=== PATIENT | female | born 1980 | race African-American/Black ===

== ENCOUNTER 2018-09-18 20:08 | Emergency (ER) | payer OTHER, SELFPAY ==
[2018-09-18 20:36] LABS: #Basophils 0.1 thou/uL (0.0-0.2); #Eosinphils 0.6 thou/uL (0.0-0.7); #Lymphocytes 3.3 thou/uL (1.20-3.40); #Monocytes 0.3 thou/uL (0.11-0.59); #Neutrophils 4.4 thou/uL (1.40-6.50); %Basophils 1.4 % (0.0-1.0); %Eosinophils 6.5 % (0.0-10.0); %Lymphocytes 37.6 % (21.0-51.0); %Neutrophils 50.5 % (42.0-75.0); Mean Corpuscular HGB CONC 32.3 g/dL (32.0-36.0); Mean Corpuscular Hemoglobin 29.3 pg (27.0-31.0); Mean Corpuscular Volume 90.7 fL (78.0-98.0); Mean Platelet Volume 7.1 fL (7.4-10.4); Platelet Count 244 thou/uL (130-400); RBC Distribution Width 12.3 % (11.5-14.5); Red Blood Cell (RBC) Count 4.08 mill/uL (4.20-5.40); White Blood Cell (WBC) Count 8.7 thou/uL (4.8-10.8)
[2018-09-18] MEDS ORDERED: predniSONE 20 MG TAB ONE (20:41)
[2018-09-18 20:47] LABS: BHCG - Serum Negative (NEGATIVE); Pregs Control Background? CLEAR/WHITE (CLR/WHITE); Pregs Control Bar Appear? YES (CONTROL BAR)
--- NOTE | 2018-09-18 20:57 | RAD ---
UPRIGHT CHEST ONE VIEW: 09/18/18 HISTORY: 38-year-old female with history of chest pain for one hour wit nausea and vomiting. History of conge stive heart failure. Monitor leads overlie the chest. Heart size is within normal limits. The lungs are clear. IMPRESSION: No acute intrathoracic disease. Stable from prior study, 01/02/17. POS: FRANCIE
[2018-09-18 20:58] LABS: ALT (SGPT) 12 U/L (8-55); AST (SGOT) 13 U/L (5-34); Alkaline Phosphatase 62 U/L (40-150); Anion Gap 11 mmol/L (10-20); BUN (Urea Nitrogen) 9 mg/dL (7.0-18.7); Bilirubin, Total 0.6 mg/dL (0.2-1.2); CK (CPK) 284 U/L (29-168); Calc. Creatinine Clearance 0 mL/min (70-130); Calcium 8.9 mg/dL (7.8-10.44); Carbon Dioxide 25 mmol/L (22-29); Chloride 108 mmol/L (98-107); Estimated GFR-MDRD Greater than 90; Glucose 135 mg/dL (70-105); Lipase 24 U/L (8-78); Potassium 3.7 mmol/L (3.5-5.1); Sodium 140 mmol/L (136-145)
--- NOTE | 2018-09-20 13:17 | EKG ---
Test Reason : Blood Pressure : / mmHG Vent. Rate : 087 BPM Atrial Rate : 087 BPM P-R Int : 142 ms QRS Dur : 086 ms QT Int : 400 ms P-R-T Axes : 058 046 018 degrees QTc Int : 481 ms Normal sinus rhythm Possible Left atrial enlargement Possible Anterior infarct , age undetermined Abnormal ECG Confirmed by ALEIDA BRUNO, ROHIT ([id number]), market editor SHRUTI JULIEN ([id number]) on 09/20/2018 1:17:18 PM Referred By: Confirmed By:ROHIT SHIN MD
== END 2018-09-18 22:02 | disposition home or self-care (01) ==
LOC: ERS 20:08
DX: J45.901 Unspecified asthma with (acute) exacerbation (principal); R07.2 Precordial pain; I11.0 Hypertensive heart disease with heart failure; I50.9 Heart failure, unspecified; F17.210 Nicotine dependence, cigarettes, uncomplicated; F41.9 Anxiety disorder, unspecified; F32.9 Major depressive disorder, single episode, unspecified; Z79.899 Other long term (current) drug therapy
CPT/HCPCS: 71045; 80053; 82550; 83690; 83880; 84484; 84703; 85025; 93005; 94760; J7506; J7620

== ENCOUNTER 2019-10-14 13:21 | Observation (INO) | payer SELFPAY ==
--- NOTE | 2019-10-14 14:43 | RAD ---
Exam: Chest one view HISTORY:Chest pain Comparison: 09/18/2018 FINDINGS: Cardiac silhouette: Normal Aorta: Unremarkable Pulmonary vessels: Normal Costophrenic angles: Clear LUNGS: No masses or consolidation. Pneumothorax: None Osseous abnormalities: None IMPRESSION: No acute cardiopulmonary process.
[2019-10-14 14:46] LABS: #Basophils 0.1 thou/uL (0.0-0.2); #Eosinphils 0.8 thou/uL (0.0-0.7); #Lymphocytes 2.5 thou/uL (1.20-3.40); #Monocytes 0.5 thou/uL (0.11-0.59); #Neutrophils 5.4 thou/uL (1.40-6.50); %Basophils 0.6 % (0.0-1.0); %Eosinophils 8.3 % (0.0-10.0); %Lymphocytes 26.9 % (21.0-51.0); %Monocytes 5.7 % (0.0-10.0); %Neutrophils 58.5 % (42.0-75.0); Mean Corpuscular HGB CONC 32.4 g/dL (32.0-36.0); Mean Corpuscular Hemoglobin 29.7 pg (27.0-31.0); Mean Corpuscular Volume 91.7 fL (78.0-98.0); Mean Platelet Volume 7.2 fL (7.4-10.4); Platelet Count 218 thou/uL (130-400); RBC Distribution Width 12.5 % (11.5-14.5); Red Blood Cell (RBC) Count 4.38 mill/uL (4.20-5.40); White Blood Cell (WBC) Count 9.2 thou/uL (4.8-10.8)
[2019-10-14 15:04] LABS: ALT (SGPT) 10 U/L (8-55); AST (SGOT) 11 U/L (5-34); Albumin 4.2 g/dL (3.5-5.0); Alkaline Phosphatase 73 U/L (40-110); Anion Gap 10 mmol/L (10-20); BUN (Urea Nitrogen) 8 mg/dL (7.0-18.7); Bilirubin, Total 0.5 mg/dL (0.2-1.2); Calc. Creatinine Clearance 0 mL/min (70-130); Calcium 9.2 mg/dL (7.8-10.44); Carbon Dioxide 29 mmol/L (22-29); Chloride 106 mmol/L (98-107); Estimated GFR-MDRD Greater than 90; Globulin 3.5 g/dL (2.4-3.5); Glucose 91 mg/dL (70-105); Lipase 28 U/L (8-78); Potassium 4.1 mmol/L (3.5-5.1); Protein, Total 7.7 g/dL (6.0-8.3); Sodium 141 mmol/L (136-145)
--- NOTE | 2019-10-14 16:44 | PDOC.FPRHP ---
- History of Present Illness Chief Complaint: chest pain History of Present Illness: greer is a 39 yo female who presents for chest pain she reports chest pain at night for the past two days resolved with antacids. last night she started having pain in her back that has not resolved with antacids. she denies any diaphoresis, sob, orthopnea, syncope, n/v/d. she has a pmhx significant for non-ischemic cardiomyopathy in 2014 with EF of 30%. since that time she has not followed up with cardiology. recently she has stopped taking her medications as well. ED Course: albuterol, asa cxr, cbc, cmp, trop - Allergies/Adverse Reactions Allergies Allergy/AdvReac Type Severity Reaction Status Date / Time Penicillins Allergy Verified 10/14/19 20:10 - Home Medications Medication Instructions Recorded Confirmed Type Albuterol Sulfate [Albuterol 0.63 mg NEB Q4HR PRN 09/09/15 10/14/19 History Sulfate Neb] Albuterol Sulfate [Ventolin HFA] 2 puff INH Q4HR PRN 09/09/15 10/14/19 History - History PMHx:non-ischemic cardiomyopathy, htn, hld PSHx: none FHx: none Social: 10/10 ppd, hx of cocaine abuse - Review of Systems General: denies: fever/chills, fatigue Eyes: denies: vision changes ENT: denies: nasal congestion, rhinorrhea Respiratory: reports: cough. denies: congestion, shortness of breath, exercise intolerance Cardiovascular: reports: chest pain. denies: palpitation, edema, paroxysmal nocturnal dyspnea, orthopnea Gastrointestinal: denies: nausea, vomiting, diarrhea, abdominal pain Genitourinary: denies: dysuria Skin: denies: rashes Musculoskeletal: reports: pain, tenderness Neurological: denies: numbness, syncope - Vital signs BP: 141/76, Pulse: 104, Resp: 20, Temp: 98.8 (Oral), Pain: 7, O2 sat: 100 on ( Room Air), - Physical Exam Constitutional: NAD, awake, alert and oriented HEENT: normocephalic and atraumatic, grossly normal vision, grossly normal hearing, MMM Neck: FROM, trachea midline Chest: other (ttp) Heart: RRR, normal S1/S2, no murmurs/rubs/gallops Lungs: CTAB, no respiratory distress, good air movement, no wheezing, no retractions Abdomen: soft, non-tender, no masses/distention Musculoskeletal: normal structure, normal tone, ROM grossly normal Neurological: no focal deficit Skin: no rash/lesions FMR H&P: Results - Labs Result Diagrams: 10/14/19 14:25 10/14/19 14:25 Lab results: WBC 9.2 thou/uL (4.8-10.8) 10/14/19 14:25 Hgb 13.0 g/dL (12.0-16.0) 10/14/19 14:25 Hct 40.2 % (36.0-47.0) 10/14/19 14:25 MCV 91.7 fL (78.0-98.0) 10/14/19 14:25 Plt Count 218 thou/uL (130-400) 10/14/19 14:25 Neutrophils % 58.5 % (42.0-75.0) 10/14/19 14:25 Sodium 141 mmol/L (136-145) 10/14/19 14:25 Potassium 4.1 mmol/L (3.5-5.1) 10/14/19 14:25 Chloride 106 mmol/L (98-107) 10/14/19 14:25 Carbon Dioxide 29 mmol/L (22-29) 10/14/19 14:25 BUN 8 mg/dL (7.0-18.7) 10/14/19 14:25 Creatinine 0.83 mg/dL (0.6-1.1) 10/14/19 14:25 Glucose 91 mg/dL (70-105) 10/14/19 14:25 Calcium 9.2 mg/dL (7.8-10.44) 10/14/19 14:25 Total Bilirubin 0.5 mg/dL (0.2-1.2) 10/14/19 14:25 AST 11 U/L (5-34) 10/14/19 14:25 ALT 10 U/L (8-55) 10/14/19 14:25 Alkaline Phosphatase 73 U/L (40-110) 10/14/19 14:25 B-Natriuretic Peptide 14.1 pg/mL (0-100) 10/14/19 14:25 Serum Total Protein 7.7 g/dL (6.0-8.3) 10/14/19 14:25 Albumin 4.2 g/dL (3.5-5.0) 10/14/19 14:25 Lipase 28 U/L (8-78) 10/14/19 14:25 FMR H&P: A/P - Problem List (1) Tobacco abuse Current Visit: No Status: Acute Code(s): Z72.0 - TOBACCO USE (2) Cardiomyopathy Current Visit: No Status: Chronic Code(s): I42.9 - CARDIOMYOPATHY, UNSPECIFIED (3) HTN (hypertension) Current Visit: No Status: Chronic Code(s): I10 - ESSENTIAL (PRIMARY) HYPERTENSION Qualifiers: Hypertension type: essential hypertension Qualified Code(s): I10 - Essential (primary) hypertension - Plan chest pain - ekg without st changes, regular rhythm and rate, trop negx1 - ekg for chest pain, nitro - trend troponin non-ischemic cardiomyopathy - bnp 14 - echo htn - elevated in ED - hydralazine prn - start lisinopril hld - obtain flp - start statin pending results ppx: lovenox code: dispo: tele obs for chest pain, likely dc tomorrow with negative trops FMR H&P: Upper Level - Plan Date/Time: 10/14/19 1640 I, [], have evaluated this patient and agree with findings/plan as outlined by graduate internship resident. Pertinent changes/additions are listed here. Addendum - Attending - Attending Attestation Date/Time: 10/14/19 2571 I personally evaluated the patient and discussed the management with Dr. Funes I agree with the History, Examination, Assessment and Plan documented above with any addition or exceptions noted below- 39 yo female with h/o asthma and non-ischemic cardiomyopathy who presented for chest pain. She reports chest pain at night for the past two days resolved with antacids. Last night she started having pain in her back that has not resolved with antacids. Pain worse with deep breath or cough. Denies any diaphoresis, sob, orthopnea, syncope, n/v/ d. With regards to her her cardiomyopathy, she has not followed up with cardiology and has not taken medications in the last year. PMH/PSH/Meds/SH reviewed and agree with resident's documentation. Afebrile VSS. Exam repeated by me and agree with resident's findings. Labs: trop I <0.010 x2. EKG- NSR no ST changes. A/P: 1) Atypical chest pain- continue serial cardiac enzymes; will plan to check echo due to her h/o non-ischemic cardiomyoapthy and no recent follow-up/evaluation. -
[2019-10-14] MEDS ORDERED: Aspirin Chewable 81 MG TAB ONE (16:52)
[2019-10-14 18:51] LABS: Troponin I Less than 0.010 ng/mL (< 0.028)
[2019-10-14] MEDS ORDERED: Ondansetron ODT 4 MG TAB PO PRN (19:12)
[2019-10-14] MEDS ORDERED: Nitroglycerin 0.4 MG TAB (25 Tab Bottle) PO PRN (19:12)
[2019-10-14] MEDS ORDERED: Acetaminophen 325 MG TAB PO PRN (19:12)
[2019-10-14 19:15] VITALS: BMI 43.2
[2019-10-14 21:04] LABS: Troponin I Less than 0.010 ng/mL (< 0.028)
--- NOTE | 2019-10-15 05:24 | PDOC.FM ---
- Subjective Subjective: Patient doing well this morning, denies chest pain or pressure overnight. Reports shoulder and back pain. Discussed that we are getting echo today and that will help guide our decision making/plan. Patient agreeable with plan of care. - Objective Vital Signs & Weight: Vital Signs (12 hours) Temp Pulse Resp BP Pulse Ox 10/15/19 04:50 97.8 F 85 16 127/70 99 10/14/19 23:39 98.1 F 81 18 158/79 H 98 10/14/19 19:00 98.6 F 80 20 151/76 H 99 Weight Weight 109.225 kg Result Diagrams: 10/14/19 14:25 10/14/19 14:25 EKG Reviewed by me: Yes (sinus 70s-80s) Phys Exam - Physical Examination Constitutional: NAD HEENT: moist MMs, sclera anicteric Neck: supple, full ROM Respiratory: no wheezing, clear to auscultation bilateral Cardiovascular: RRR, no significant murmur Gastrointestinal: soft, non-tender Musculoskeletal: no edema, pulses present Neurological: non-focal, moves all 4 limbs Psychiatric: normal affect, A&O x 3 Skin: no rash, normal turgor Dx/Plan (1) Tobacco abuse Code(s): Z72.0 - TOBACCO USE Status: Chronic (2) Cardiomyopathy Code(s): I42.9 - CARDIOMYOPATHY, UNSPECIFIED Status: Chronic (3) HTN (hypertension) Code(s): I10 - ESSENTIAL (PRIMARY) HYPERTENSION Status: Chronic Qualifiers: Hypertension type: essential hypertension Qualified Code(s): I10 - Essential (primary) hypertension (4) Chest pain Code(s): R07.9 - CHEST PAIN, UNSPECIFIED Status: Acute - Plan Plan: #Atypical chest pain - ekg: no st changes, regular rhythm and rate - sinus 70s-80s overnight, no arrhythmias - trop negx3 - ekg for chest pain, nitro - TSH: 0.222, free t3 and t4 wnl - A1C: 5.6 - FLP: triglycerides 89, total chol 113, HDL 31 #non-ischemic cardiomyopathy - bnp 14 - echo today to assess acute vs chronic cardiomyopathy - cath 09/20 demonstrated EF 40-45%, diastolic dysfunction - patient has a hx of drug abuse - patient states that 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
[2019-10-15 05:40] LABS: Cardiac Risk 3.6 (Less than 4.5); Cholesterol 113 mg/dl (< 200 Desired); HDL Cholesterol 31 mg/dL (>60 Neg Risk)
[2019-10-15 06:16] LABS: Hemoglobin A1c 5.6 % (4.0-6.0)
[2019-10-15 07:14] LABS: Triglycerides 89 mg/dL (Less than 150)
[2019-10-15 07:29] LABS: Free T4 (Free Thyroxine) 0.92 ng/dL (0.70-1.48)
[2019-10-15 08:36] VITALS: BP 154/66; TEMP 98.7
[2019-10-15] MEDS ORDERED: FLU VACC QS2019-20(6MOS UP)/PF 60 MCG/0.5 ML SYRINGE IM ONE (09:00)
[2019-10-15] MEDS ORDERED: Lisinopril 2.5 MG TAB PO SCH (09:00)
[2019-10-15] MEDS ORDERED: Enoxaparin Sodium 40 MG/0.4 ML SYRINGE SC SCH (09:00)
--- NOTE | 2019-10-15 13:39 | PRG ---
DATE OF SERVICE: 10/15/2019 ADDENDUM: This as an addendum to the note of Dr. Nimco Booker. I have examined the patient and discussed the case with Dr. Booker. I agree with her assessment and plan. Ms. Mcbride is a very pleasant 39-year-old black female with a history of nonischemic cardiomyopathy with EF of 30%. She has not seen a oncology patient navigator since about 2014 and had stopped taking her cardiac medications. She came in with some atypical chest and back pain, that was however relieved with antacids. In the event while in the hospital, she had no further episodes of chest discomfort. Her EKG showed no ischemic changes. Her troponins trended at less than 0.01 x2. She will be cautiously started back on an KARUNA inhibitor to be followed with a beta-christopher and has been instructed to please follow up with her PCP at [facility] as soon as possible to continue to add and adjust her heart failure with reduced ejection fraction medications. Her BMP showed a sodium of 141, potassium 4.1, chloride 106, bicarb 29, BUN 8, and creatinine 0.83. Liver enzymes were normal. Lipids; triglycerides were 89, cholesterol was 113, HDL was 31. As stated above, she had no chest discomfort whatsoever and will be discharged for followup with her PCP with the admonition that she please take her cardiac medications and follow up to have these adjusted. Job ID: [id number]
--- NOTE | 2019-10-16 10:37 | DIS ---
DATE OF ADMISSION: 10/14/2019 DATE OF DISCHARGE: 10/15/2019 ADMITTING RESIDENT: Edwar Funes DO ADMITTING ATTENDING: Serjio Arreola MD DISCHARGE RESIDENT: Nimco Booker MD DISCHARGE ATTENDING: Ky Diane MD CONSULTS: None. PROCEDURES: None. IMAGIN. Chest x-ray: No acute cardiopulmonary process. 2. Echo: EF 30-35%. Left ventricular size is moderately increased. E/A flow reversal noted suggestive of diastolic dysfunction. Normal right ventricular size and function. Left atrium is normal size. Normal right atrium size. Structurally normal mitral valve. Trace mitral regurgitation is present. Structurally normal aortic valve. Trace tricuspid regurgitation. PRIMARY DIAGNOSIS: Atypical chest pain. SECONDARY DIAGNOSES: 1. Nonischemic cardiomyopathy. 2. Hypertension. 3. Hyperlipidemia. DISCHARGE MEDICATIONS: 10 mg lisinopril p.o. daily. DISCONTINUED MEDICATIONS: 1. Tylenol p.r.n. 2. Lovenox. 3. 2.5 mg lisinopril. 4. nitrostat prn. 5. Zofran p.r.n. HISTORY OF PRESENT ILLNESS/HOSPITAL COURSE: The patient is a 39-year-old female with past medical history of hypertension, hyperlipidemia, and nonischemic cardiomyopathy likely from cocaine abuse several years ago when she had a cath September 2015 that showed an EF of 40% to 45%. The patient came into the ED because she had chest pain at night for 2 days prior to admission that she reported had not resolved with antacids. She also had pain in her back. She denied any diaphoresis, shortness of breath, orthopnea, syncope, nausea, vomiting, or diarrhea. She does not have a primary care provider and has not been taking any other medications for several years. She was found to have a negative troponin x3, and EKG showed no ST changes, but a regular rhythm and rate, and a BNP of 14. An echocardiogram was ordered, see above. She was started on lisinopril here in the hospital and was discharged with a script and recommended to follow up with primary care physician to monitor her electrolytes in 1 week and to consider adding a beta-christopher at that time for a known history of cardiomyopathy and reduced ejection fraction and heart failure. The patient was evaluated on the day of discharge and denied any chest pain overnight, and the plan of care was discussed with her to follow up with her primary care provider as outpatient. She was agreeable with the plan of care. DISPOSITION: Stable. DISCHARGE INSTRUCTIONS: 1. Location: To home. 2. Diet: Heart healthy. 3. Activity: As tolerated. 4. Follow up with PCP within 1 week for electrolyte monitoring and consideration of addition of a beta christopher for heart failure. Job ID: [id number] [id number]
== END 2019-10-15 12:07 | disposition home or self-care (01) ==
LOC: ERS 13:21 → 2SW 16:54
PROVIDERS: ADMIT Family Medicine; ATTEND Family Medicine
DX: R07.89 Other chest pain (principal); I42.8 Other cardiomyopathies; I11.0 Hypertensive heart disease with heart failure; I50.9 Heart failure, unspecified; E78.5 Hyperlipidemia, unspecified; F17.210 Nicotine dependence, cigarettes, uncomplicated; F14.11 Cocaine abuse, in remission; J45.909 Unspecified asthma, uncomplicated; Z91.14 Patient's other noncompliance with medication regimen; Z79.899 Other long term (current) drug therapy; Z88.0 Allergy status to penicillin
CPT/HCPCS: 36415; 36416; 71045; 80053; 80061; 83036; 83690; 83880; 84439; 84443; 84481; 84484; 85025; 90471; 90686; 90732; 93005; 93306; 94760; G0008; G0009; G0378

== ENCOUNTER 2020-12-25 07:52 | Emergency (ER) | payer OTHER, SELFPAY ==
[2020-12-25] MEDS ORDERED: methylPREDNISolone Sod Succ/PF 125 MG/2 ML VIAL ONE (08:12)
[2020-12-25 17:01] LABS: SARS-CoV-2 PCR by NAA Not Detected (NotDetected)
== END 2020-12-25 09:43 | disposition home or self-care (01) ==
LOC: ERS 07:52
DX: J45.901 Unspecified asthma with (acute) exacerbation (principal); I11.0 Hypertensive heart disease with heart failure; I50.9 Heart failure, unspecified; Z20.822 Contact with and (suspected) exposure to COVID-19; Z79.899 Other long term (current) drug therapy
CPT/HCPCS: 71045; 87635; 87804; 94640; 96374; J2930; J7620; U0003; U0005

== ENCOUNTER 2021-07-12 17:05 | Emergency (ER) | payer OTHER ==
[2021-07-12] MEDS ORDERED: predniSONE 20 MG TAB ONE (18:20)
[2021-07-12 18:32] LABS: ALT (SGPT) 22 U/L (8-55); AST (SGOT) 20 U/L (5-34); Alkaline Phosphatase 61 U/L (40-110); Anion Gap 11 mmol/L (10-20); BUN (Urea Nitrogen) 10 mg/dL (7.0-18.7); Bilirubin, Total 0.3 mg/dL (0.2-1.2); Calc. Creatinine Clearance 0 mL/min (70-130); Calcium 9.1 mg/dL (7.8-10.44); Carbon Dioxide 24 mmol/L (22-29); Chloride 108 mmol/L (98-107); Globulin 3.5 g/dL (2.4-3.5); Glucose 96 mg/dL (70-105); Potassium 4.6 mmol/L (3.5-5.1); Protein, Total 7.5 g/dL (6.0-8.3); Sodium 138 mmol/L (136-145)
[2021-07-12] MEDS ORDERED: Albuterol 200 PUFF (6.7GM INHALER) ONE (18:40)
[2021-07-12 18:48] LABS: Hemoglobin 13.7 g/dL (12.0-16.0); Mean Corpuscular HGB CONC 32.6 g/dL (32.0-36.0); Mean Corpuscular Hemoglobin 29.9 pg (27.0-31.0); Mean Corpuscular Volume 91.7 fL (78.0-98.0); RBC Distribution Width 12.6 % (11.5-14.5); Red Blood Cell (RBC) Count 4.58 mill/uL (4.20-5.40); White Blood Cell (WBC) Count 8.9 thou/uL (4.8-10.8)
[2021-07-12 19:01] LABS: Eosinophils 12 % (0-10); Lymphocytes 28 % (21-51); MDiff Complete? YES; Monocytes 9 % (0-10); Neutrophil 51 % (42-75); Platelet Clumps MODERATE; Platelet Morphology Comment PLT clumps seen-ADEQ; RBC Morphology Normal
== END 2021-07-12 19:21 | disposition home or self-care (01) ==
LOC: ERS 17:05
DX: J45.901 Unspecified asthma with (acute) exacerbation (principal); I11.0 Hypertensive heart disease with heart failure; I50.9 Heart failure, unspecified; Z79.899 Other long term (current) drug therapy
CPT/HCPCS: 71045; 80053; 84484; 85025; 93005; J7512

== ENCOUNTER 2021-10-05 06:18 | Emergency (ER) | payer OTHER ==
[2021-10-05] MEDS ORDERED: Albuterol 200 PUFF (6.7GM INHALER) ONE (07:34)
[2021-10-05 07:45] LABS: #Eosinphils 0.7 thou/uL (0.0-0.7); #Lymphocytes 2.8 thou/uL (1.20-3.40); #Monocytes 0.5 thou/uL (0.11-0.59); %Basophils 0.7 % (0.0-1.0); %Eosinophils 9.7 % (0.0-10.0); %Lymphocytes 39.9 % (21.0-51.0); %Monocytes 6.9 % (0.0-10.0); %Neutrophils 42.8 % (42.0-75.0); Hemoglobin 13.9 g/dL (12.0-16.0); Mean Corpuscular HGB CONC 32.2 g/dL (32.0-36.0); Mean Corpuscular Hemoglobin 29.8 pg (27.0-31.0); Mean Corpuscular Volume 92.6 fL (78.0-98.0); Mean Platelet Volume 10.4 fL (7.4-10.4); Platelet Count 254 thou/uL (130-400); RBC Distribution Width 12.2 % (11.5-14.5); Red Blood Cell (RBC) Count 4.65 mill/uL (4.20-5.40)
[2021-10-05 08:09] LABS: ALT (SGPT) 15 U/L (8-55); AST (SGOT) 12 U/L (5-34); Albumin 3.8 g/dL (3.5-5.0); Alkaline Phosphatase 52 U/L (40-110); Anion Gap 10 mmol/L (10-20); BUN (Urea Nitrogen) 13 mg/dL (7.0-18.7); Bilirubin, Total 0.4 mg/dL (0.2-1.2); Calc. Creatinine Clearance 0 mL/min (70-130); Calcium 9.3 mg/dL (7.8-10.44); Carbon Dioxide 29 mmol/L (22-29); Chloride 107 mmol/L (98-107); Globulin 3.1 g/dL (2.4-3.5); Glucose 93 mg/dL (70-105); Potassium 4.6 mmol/L (3.5-5.1); Protein, Total 6.9 g/dL (6.0-8.3); Sodium 141 mmol/L (136-145)
[2021-10-05] MEDS ORDERED: predniSONE 20 MG TAB ONE ×2 (09:10→09:11)
[2021-10-05 14:38] LABS: SARS-CoV-2 PCR by NAA Not Detected (NotDetected)
== END 2021-10-05 09:14 | disposition home or self-care (01) ==
LOC: ERS 06:18
DX: J45.901 Unspecified asthma with (acute) exacerbation (principal); Z20.822 Contact with and (suspected) exposure to COVID-19; I11.0 Hypertensive heart disease with heart failure; I50.9 Heart failure, unspecified
CPT/HCPCS: 36415; 71045; 80053; 83880; 84484; 85025; 93005; 94664; J7512; U0003; U0005

== ENCOUNTER 2021-10-14 22:59 | Emergency (ER) | payer OTHER ==
[2021-10-15] MEDS ORDERED: Ipratropium Bromide 2.5 ml Neb ONE (00:34)
[2021-10-15] MEDS ORDERED: Albuterol 200 PUFF (6.7GM INHALER) ONE (00:39)
== END 2021-10-15 00:14 | disposition home or self-care (01) ==
LOC: ERS 22:59
DX: J45.909 Unspecified asthma, uncomplicated (principal); I11.0 Hypertensive heart disease with heart failure; I50.9 Heart failure, unspecified
CPT/HCPCS: 71045; 93005; J7620

== ENCOUNTER 2021-11-28 06:20 | Emergency (ER) | payer OTHER ==
[2021-11-28 07:51] LABS: ALT (SGPT) 17 U/L (8-55); AST (SGOT) 14 U/L (5-34); Albumin 4.1 g/dL (3.5-5.0); Alkaline Phosphatase 48 U/L (40-110); Anion Gap 11 mmol/L (10-20); BUN (Urea Nitrogen) 7 mg/dL (7.0-18.7); Bilirubin, Total 0.8 mg/dL (0.2-1.2); Calc. Creatinine Clearance 0 mL/min (70-130); Carbon Dioxide 23 mmol/L (22-29); Chloride 110 mmol/L (98-107); Globulin 2.6 g/dL (2.4-3.5); Glucose 118 mg/dL (70-105); Magnesium 1.8 mg/dL (1.6-2.6); Protein, Total 6.7 g/dL (6.0-8.3); Sodium 140 mmol/L (136-145)
[2021-11-28 07:59] LABS: Band 1 % (5-11); Eosinophils 4 % (0-10); Hemoglobin 13.4 g/dL (12.0-16.0); Large Platelets SLIGHT; Lymphocytes 48 % (21-51); MDiff Complete? YES; Mean Corpuscular HGB CONC 31.8 g/dL (32.0-36.0); Mean Corpuscular Hemoglobin 29.2 pg (27.0-31.0); Mean Corpuscular Volume 91.7 fL (78.0-98.0); Mean Platelet Volume 11.8 fL (7.4-10.4); Monocytes 6 % (0-10); Neutrophil 41 % (42-75); Platelet Clumps MARKED; Platelet Morphology Comment PLT clumps seen-ADEQ; Polychromasia SLIGHT = 2-3 cells (100X) (0-2/hpf); RBC Distribution Width 12.2 % (11.5-14.5); Red Blood Cell (RBC) Count 4.59 mill/uL (4.20-5.40); White Blood Cell (WBC) Count 7.9 thou/uL (4.8-10.8)
[2021-11-28] MEDS ORDERED: Magnesium 2 GM/50 ML BAG (IN WATER) ONE (08:14)
[2021-11-28] MEDS ORDERED: predniSONE 20 MG TAB ONE (08:14)
[2021-11-28 08:23] LABS: Amphetamine Not Detected (NotDetected); Barbiturates Screen Not Detected (NotDetected); Benzodiazepine Screen Not Detected (NotDetected); Cocaine Metabolite Screen Not Detected (NotDetected); Methadone Not Detected (NotDetected); Methamphetamine Not Detected (NotDetected); Opiate Screen Not Detected (NotDetected); Oxycodone Screen Not Detected (NotDetected); Phencyclidine (PCP) Not Detected (NotDetected); THC/Cannabinoid Screen Detected (NotDetected); Tricyclic Screen Not Detected (NotDetected)
[2021-11-28 08:24] LABS: Pregnancy Test - Urine (BHCG) Negative (Negative); Pregu Control Background? CLEAR/WHITE (CLR/WHITE); Pregu Control Bar Appear? YES (CONTROL BAR); Specific Gravity 1.022 (1.002-1.036)
== END 2021-11-28 09:01 | disposition home or self-care (01) ==
LOC: ERS 06:20
DX: J45.901 Unspecified asthma with (acute) exacerbation (principal); I11.0 Hypertensive heart disease with heart failure; I50.9 Heart failure, unspecified; Z79.899 Other long term (current) drug therapy
CPT/HCPCS: 36415; 71045; 80053; 80306; 81025; 83735; 83880; 84484; 85025; 93005; 94640; 96374; J3475; J7512; J7620

== ENCOUNTER 2024-05-29 22:54 | Emergency (ER) | payer SELFPAY ==
[2024-05-30 00:05] LABS: #Basophils Less than 0.03 10x3/uL (0.0-0.2); %Basophils 0.3 % (0.0-1.0); %Eosinophils 5.4 % (0.0-10.0); %Lymphocytes 32.7 % (21.0-51.0); %Monocytes 6.9 % (0.0-10.0); %Neutrophils 54.2 % (42.0-75.0); Hematocrit 37.4 % (36.0-47.0); Hemoglobin 12.4 g/dL (12.0-16.0); Mean Corpuscular HGB CONC 33.2 g/dL (32.0-36.0); Mean Corpuscular Hemoglobin 28.9 pg (27.0-31.0); Mean Corpuscular Volume 87.2 fL (78.0-98.0); Mean Platelet Volume 10.9 fL (7.4-10.4); Platelet Count 250 10x3/uL (130-400); RBC Distribution Width 14.2 % (11.5-14.5); Red Blood Cell (RBC) Count 4.29 mill/uL (4.20-5.40)
[2024-05-30 00:07] LABS: BHCG - Serum Negative (NEGATIVE); Pregs Control Background? CLEAR/WHITE (CLR/WHITE); Pregs Control Bar Appear? YES (CONTROL BAR)
[2024-05-30 00:13] LABS: Troponin I Less than 0.010 ng/mL (< 0.028)
[2024-05-30 00:17] LABS: Platelet Adequacy Comment Platelets Normal; RBC Morphology Within Normal Limits
[2024-05-30] MEDS ORDERED: methylPREDNISolone Sod Succ/PF 125 MG/2 ML VIAL ONE (00:50)
[2024-05-30] MEDS ORDERED: Furosemide 40 MG (4 mL) VIAL ONE (00:50)
== END 2024-05-30 02:32 | disposition home or self-care (01) ==
LOC: ERS 22:54
DX: I11.0 Hypertensive heart disease with heart failure (principal); I50.9 Heart failure, unspecified; J45.909 Unspecified asthma, uncomplicated
CPT/HCPCS: 71045; 83880; 84484; 84703; 85025; 93005; 96374; 96375; J1940; J2919

== ENCOUNTER 2025-08-20 08:01 | Emergency (ER) | payer SELFPAY ==
[2025-08-20 09:39] LABS: CAUTI Indications for Culture Dysuria,urgency,freq; Glucose, Urine (Dipstick) Normal (Negative); Leukocyte 25 Leu/uL (Negative); Protein, Urine (Dipstick) 10 mg/dL (Neg-Trace); RBC/HPF Greater than 50 HPF (0-3); Specific Gravity, Urine 1.014 (1.002-1.036)
[2025-08-20 09:40] LABS: Bacteria/HPF 1+ HPF (None Seen)
[2025-08-20 09:42] LABS: Urine Culture Reflex No No
[2025-08-20 10:40] LABS: ALT (SGPT) 14 U/L (Less than 34); AST (SGOT) 19 U/L (11-34); Albumin 4.0 g/dL (3.1-4.5); Alkaline Phosphatase 54 U/L (40-110); Anion Gap 15 mmol/L (10-20); BUN (Urea Nitrogen) 8 mg/dL (7.0-18.7); Bilirubin, Total 0.6 mg/dL (0.3-1.2); Calc. Creatinine Clearance 0 mL/min (70-130); Calcium 9.3 mg/dL (7.8-10.44); Carbon Dioxide 23 mmol/L (22-29); Chloride 107 mmol/L (98-107); Globulin 3.3 g/dL (2.4-3.5); Glucose 94 mg/dL (70-105); Potassium 4.9 mmol/L (3.5-5.1); Sodium 140 mmol/L (136-145)
[2025-08-20] MEDS ORDERED: Acetaminophen 500 MG TAB ONE (10:44)
[2025-08-20] MEDS ORDERED: cefTRIAXone (ROCEPHIN) 1 GM VIAL ONE (10:53)
[2025-08-20 11:16] LABS: #Basophils 0.05 10x3/uL (0.0-0.2); #Eosinophils 0.19 10x3/uL (0.0-0.7); #Monocytes 0.55 10x3/uL (0.11-0.59); #Neutrophils 4.65 10x3/uL (1.40-6.50); %Basophils 0.6 % (0.0-1.0); %Eosinophils 2.3 % (0.0-10.0); %Lymphocytes 34.2 % (21.0-51.0); %Monocytes 6.6 % (0.0-10.0); %Neutrophils 56.1 % (42.0-75.0); Hematocrit 39.9 % (36.0-47.0); Hemoglobin 12.6 g/dL (12.0-16.0); Mean Corpuscular Hemoglobin 27.9 pg (27.0-31.0); Mean Corpuscular Volume 88.5 fL (78.0-98.0); Red Blood Cell (RBC) Count 4.51 mill/uL (4.20-5.40); White Blood Cell (WBC) Count 8.30 10x3/uL (4.8-10.8)
[2025-08-20 11:32] LABS: Platelet Count 298 10x3/uL (130-400)
== END 2025-08-20 18:02 | disposition home or self-care (01) ==
LOC: ERS 08:01
DX: N39.0 Urinary tract infection, site not specified (principal); J44.9 Chronic obstructive pulmonary disease, unspecified; I11.0 Hypertensive heart disease with heart failure; I50.9 Heart failure, unspecified
CPT/HCPCS: 36415; 80053; 81001; 85025; 87086; 96365; J0696